=== PATIENT | female | born 2000 | race Caucasian/White ===

== ENCOUNTER 2021-11-30 20:21 | Emergency (ER) | payer OTHER ==
[~2021-11-30] VITALS: Ht 154.9 cm; Wt 81.8 kg
[~2021-11-30 20:21] MED LIST: NO HOME MEDICATIONS
[2021-11-30 20:31] VITALS: TEMP 98
[2021-11-30 21:52] LABS: BASO % 0.2 % (0.0-2.0); EOS % 0.4 % (0.0-4.0); GRAN # 2.7 K/mm3 (1.4-6.5); GRAN % 53.5 % (42.2-75.2); HEMATOCRIT 40.9 % (35.0-45.0); LYMPH # 1.9 K/mm3 (1.2-3.4); LYMPH % 37.8 % (20.0-51.0); MEAN CELL VOLUME 86 fl (80.0-95.0); MEAN CORPUSCULAR HEMOGLOBIN 29 pg (26-32); MEAN CORPUSCULAR HGB CONC 34 g/dl (33.0-37.0); MEAN PLATELET VOLUME 10.4 fl (7.4-10.4); MONO # 0.4 K/mm3 (0.1-0.6); MONO % 8.1 % (1.7-9.3); PLATELET COUNT 214 K/mm3 (130-400); RED BLOOD COUNT 4.78 M/mm3 (4.10-5.30); REDCELL DISTRIBUTION WIDTH-CV 11.6 % (11.5-14.5)
[2021-11-30 22:06] LABS: ANION GAP 11 mmol/L (7-16); BLOOD UREA NITROGEN 12 mg/dL (7-19); CALCIUM 9.3 mg/dL (8.4-10.2); CARBON DIOXIDE 21 mmol/L (22-29); CHLORIDE 109 mmol/L (98-107); CREATININE, serum 0.77 mg/dL (0.57-1.11); GLUCOSE 84 mg/dL (70-99); POTASSIUM 3.8 mmol/L (3.5-4.5); SODIUM 141 mmol/L (136-145)
[2021-11-30 22:27] LABS: THYROID STIMULATING HORMONE 1.414 uIU/mL (0.350-4.940)
[2021-11-30 22:28] LABS: TROPONIN-I < 0.010 ng/mL (0.00-0.033)
[2021-11-30 23:19] VITALS: BP 112/78; PULSE 80
== END 2021-11-30 23:19 | disposition home or self-care (01) ==
LOC: COL.ER 20:21
PROVIDERS: Emergency Medicine
DX: R00.2 Palpitations (principal); R00.1 Bradycardia, unspecified; Z28.311 Partially vaccinated for COVID-19